=== PATIENT | female | born 1985 | race Caucasian/White ===

== ENCOUNTER → 2017-08-04 10:46 | Outpatient (CLI) | payer MEDICAID ==
[2016-03-23 05:24] VITALS: BMI 27.9
[~2017-08-04 10:46] MED LIST: HYDROCODON-ACE1 EAC7 PO; IBUPROFEN600 MG PO; PRENATAL COMPLE1 TAB PO
[2017-08-04 11:52] LABS: APPEARANCE CLOUDY (CLEAR); BILIRUBIN NEGATIVE (NEGATIVE); COLOR YELLOW (YELLOW); GLUCOSE NEGATIVE (NEGATIVE); KETONE NEGATIVE (NEGATIVE); NITRITE NEGATIVE (NEGATIVE); PROTEIN NEGATIVE (NEGATIVE); UROBILINOGEN NORMAL (NORMAL)
[2017-08-04 11:53] LABS: BACTERIA MANY /hpf (NONE SEEN); MUCUS <1+ /lpf (NONE SEEN)
== END | disposition home or self-care (01) ==
LOC: D.LDO 10:46
PROVIDERS: Obstetrics & Gynecology
DX: O21.9 Vomiting of pregnancy, unspecified (principal); Z3A.00 Weeks of gestation of pregnancy not specified

== ENCOUNTER → 2017-08-13 12:32 | Outpatient (CLI) | payer MEDICAID ==
[2016-03-23 05:24] VITALS: BMI 27.9
== END | disposition home or self-care (01) ==
LOC: D.LDO 12:32
DX: Z34.93 Encounter for supervision of normal pregnancy, unspecified, third trimester (principal); Z3A.30 30 weeks gestation of pregnancy

== ENCOUNTER → 2017-08-17 17:37 | Outpatient (CLI) | payer MEDICAID ==
[2016-03-23 05:24] VITALS: BMI 27.9
== END | disposition home or self-care (01) ==
LOC: D.LDO 17:37
DX: O36.5930 Maternal care for other known or suspected poor fetal growth, third trimester, not applicable or unspecified (principal); Z3A.31 31 weeks gestation of pregnancy

== ENCOUNTER → 2017-08-20 13:27 | Outpatient (CLI) | payer MEDICAID ==
[2016-03-23 05:24] VITALS: BMI 27.9
== END | disposition home or self-care (01) ==
LOC: D.LDO 13:27
DX: O36.5930 Maternal care for other known or suspected poor fetal growth, third trimester, not applicable or unspecified (principal); Z3A.31 31 weeks gestation of pregnancy

== ENCOUNTER → 2017-09-28 13:12 | Outpatient (CLI) | payer MEDICAID ==
[2016-03-23 05:24] VITALS: BMI 27.9
== END | disposition home or self-care (01) ==
LOC: D.LDO 13:12
DX: O36.5930 Maternal care for other known or suspected poor fetal growth, third trimester, not applicable or unspecified (principal); Z3A.37 37 weeks gestation of pregnancy